=== PATIENT | female | born 1995 | race Two or more races ===

== ENCOUNTER 2020-07-13 05:09 | Inpatient (IN) | payer OTHER ==
[2020-07-13] VITALS (14 sets, daily range): BP systolic 75–113; BP diastolic 39–82
[~2020-07-13] VITALS: Ht 167.6 cm; Wt 68.9 kg
[~2020-07-13 05:09] MED LIST: IBUPROFEN600 M1 ORAL; TYLENOL EXTRA500 MG ORAL
[2020-07-13] MEDS ORDERED: AMOXICILLIN500 MG ORAL (05:58)
[2020-07-13] MEDS ORDERED: fentaNYL 100 mcg/2 mL IV ONE (06:18)
[2020-07-13] MEDS ORDERED: Lidocaine 1% MPF 10mg/ml 5ml ONE (06:18)
[2020-07-13] MEDS ORDERED: Midazolam 2mg/2ml Inj ONE (06:18)
[2020-07-13] MEDS ORDERED: TransDerm Scop 1.5mg/72HR Patch TDERMAL ONE ×2 (06:33→08:15)
[2020-07-13] MEDS ORDERED: Succinylcholine 20mg/ml 10ml vial ONE (06:34)
[2020-07-13] MEDS ORDERED: Rocuronium Bromide 50mg/5ml Inj IV ONE (06:34)
[2020-07-13] MEDS ORDERED: Gelfoam Size TOPIC ONE (06:44)
[2020-07-13] MEDS ORDERED: Ropivacaine 5mg/ml Vial 30ml INJ ONE (06:44)
[2020-07-13] MEDS ORDERED: Thrombin 5000 units TOPIC ONE (06:44)
[2020-07-13] MEDS ORDERED: Bacitracin 50000 Units Vial ONE (06:45)
[2020-07-13] MEDS ORDERED: ceFAZolin sod 2 GM in NS 55 ML IVPB ONE (07:00)
[2020-07-13] MEDS ORDERED: propofoL 1,000mg/100ml IV ONE (07:00)
[2020-07-13] MEDS ORDERED: Sterile Water Irrig 1000ml IRRIG ONE (07:00)
[2020-07-13] MEDS ORDERED: LR 1000ml ONE (07:00)
[2020-07-13] MEDS ORDERED: NS Irrig 1000ml ONE (07:00)
--- NOTE | 2020-07-13 07:28 | Brief Operative Note ---
Immediate Post Operative Note Operative Note Chief Complaint: back pain and radiculpathy Pre-op Diagnosis: L5S1 herniation Procedure: Left L5S1 Hemilaminotomy foraminotomy microdiscectomy Post-op Diagnosis: same as pre-op Findings: consistent w/pre-op dx studies Surgeon: Shekhar Director Of Corporate Sponsorships: Natalia Anesthesiologist: DONATO Anesthesia: general Specimen: none Complications: none Condition: stable Fluids: IVF Estimated Blood Loss: minimal Drains: none Implant(s) used?: No Sameer Corrigan MD Jul 13, 2020 07:28
--- NOTE | 2020-07-13 07:28 | Pre-Procedure Note/Attestation ---
Pre-Procedure Note/Attestation Complete Prior to Procedure Planned Procedure: not applicable Procedure Narrative: Left L5S1 Hemilaminotomy foraminotomy microdiscectomy Indications for Procedure Pre-Operative Diagnosis: L5S1 herniation Attestation I attest that I discussed the nature of the procedure; its benefits; risks and complications; and alternatives (and the risks and benefits of such alternatives), prior to the procedure, with the patient (or the patient's legal hobbies and crafts sales representative). I attest that, if there was a reasonable possibility of needing a blood transfusion, the patient (or the patient's legal hobbies and crafts sales representative) was given the [facility] standardized written summary, pursuant to the Karson Soo Blood Safety Act ([place] Health and Safety Code # 1645, as amended). I attest that I re-evaluated the patient just prior to the surgery and that there has been no change in the patient's H&P, except as documented below: Sameer Corrigan MD Jul 13, 2020 07:28
--- NOTE | 2020-07-13 08:03 | Anethesia Preoperative Eval ---
Anesthesia Pre-op PMH/ROS General Date of Evaluation: Jul 13, 2020 Time of Evaluation: 06:57 Anesthesiologist: Stephanie ASA Score: ASA 2 Mallampati Score Class I : Soft palate, uvula, fauces, pillars visible Class II: Soft palate, uvula, fauces visible Class III: Soft palate, base of uvula visible Class IV: Only hard plate visible Mallampati Classification: Class II Surgeon: Shekhar Diagnosis: Lumbar radiculopathy Surgical Procedure: Laminotomy Anesthesia History: none Family History: no anesthesia problems Allergies: Coded Allergies: No Known Allergies (Unverified , 07/13/20) Medications: see eMAR Patient NPO?: Yes Past Medical History Cardiovascular: Denies: HTN, CAD, ME, valve dz, arrhythmia, other Pulmonary: Denies: asthma, COPD, BLESSING, other Gastrointestinal/Genitourinary: Reports: GERD - mild; Denies: CRI, ESRD, other Neurologic/Psychiatric: Reports: other - chronic pain; Denies: dementia, CVA, depression/anxiety, TIA Endocrine: Denies: DM, hypothyroidism, steroids, other HEENT: Denies: cataract (L), cataract (R), glaucoma, [place] (L), [place] (R), other Hematology/Immune: Denies: anemia, DVT, bleeding disorder, other Musculoskeletal/Integumentary: Denies: OA, RA, DJD, DDD, edema, other PMH Narrative: as above PSxH Narrative: none Anesthesia Pre-op Phys. Exam Physician Exam Last Vital Signs Date Time Temp Pulse Resp B/P (MAP) Pulse Ox O2 Delivery O2 Flow Rate FiO2 07/13/20 05:55 Room Air 07/13/20 05:54 98.7 86 20 113/75 (88) 100 Constitutional: NAD Neurologic: CN 2-12 intact Cardiovascular: RRR, no M/R/G Respiratory: CTA Gastrointestinal: S/NT/ND Airway Exam Mallampati Score: Class II MO: full Neck: flexible ROM: full Teeth: intact Dentures: no upper, no lower Anesthesia Pre-op A/P Labs see chart Urine Test Test 07/13/20 05:30 Urine HCG, Qualitative Negative (NEGATIVE) Studies Pre-op Studies: EKG - NSR Risk Assessment & Plan Assessment: ASA 2 Plan: GA with ETT, prone position neuromonitoring, PONV prevention Status Change Before Surgery: No Pre-Antibiotics Drug: Ancef 1g Given Within 1 Hr of Incision: Yes Time Given: 07:16 Rajan Brown MD Jul 13, 2020 08:03
[2020-07-13] MEDS ORDERED: Morphine Sulfate 10mg/ml Inj ONE (08:08)
[2020-07-13] MEDS ORDERED: Ketorolac 30mg Inj ONE (08:10)
[2020-07-13] MEDS ORDERED: Glycopyrrolate 0.2mg/ml 1ml Vial ONE (08:10)
[2020-07-13] MEDS ORDERED: Neostigmine 1mg/ml 10ml Inj ONE (08:10)
[2020-07-13] MEDS ORDERED: Sodium Chloride 10ml vial INJ ONE (08:10)
[2020-07-13] MEDS ORDERED: Acetaminophen (Non formulary) 100 ML IV ONE (08:15)
[2020-07-13] MEDS ORDERED: LR 1000ml 1,000 ML IVLG SCH (08:15)
[2020-07-13] MEDS ORDERED: DiphenhydrAMINE 50mg/ml Inj IVP PRN (08:15)
[2020-07-13] MEDS ORDERED: Metoclopramide 10mg/2ml Inj IVP PRN ×2 (08:15→11:30)
[2020-07-13] MEDS ORDERED: Midazolam 2mg/2ml Inj IVP PRN (08:15)
[2020-07-13] MEDS ORDERED: Meperidine 25mg/1ml Inj (FOR RIGORS ONLY) IV PRN (08:15)
[2020-07-13] MEDS ORDERED: Ketorolac 30mg Inj IV PRN (08:15)
--- NOTE | 2020-07-13 09:17 | Immediate Post-Op Evaluation ---
Immediate Post-Op Evalulation Immediate Post-Op Evalulation Procedure: L5-S1 laminotomy with discectomy and decompression Date of Evaluation: Jul 13, 2020 Time of Evaluation: 09:16 IV Fluids: 800 Blood Products: none Estimated Blood Loss: 20 Urinary Output: none Blood Pressure Systolic: 95 Blood Pressure Diastolic: 56 Pulse Rate: 72 Respiratory Rate: 20 O2 Sat by Pulse Oximetry: 99 Temperature (Fahrenheit): 97.5 Pain Score (1-10): 1 Nausea: No Vomiting: No Complications none Patient Status: reacts, patent, extubated, none Hydration Status: adequate Rajan Brown MD Jul 13, 2020 09:17
--- NOTE | 2020-07-13 10:29 | Operative Note - Dictated ---
DATE OF OPERATION: 07/13/2020 SURGEON: Sameer Corrigan MD, Orthopaedic Spine Surgeon. SPEEDBOAT DRIVER SURGEON: ADA Elizalde ANESTHESIOLOGIST: Rajan Brown MD. ANESTHESIA: General endotracheal anesthesia. PREOPERATIVE DIAGNOSES: 1. Intractable back pain. 2. Intractable leg pain. 3. Worsening radiculopathy. 4. Weakness. 5. Herniated nucleus pulposus, L5-S1 herniation. 6. Neural foraminal stenosis, L5-S1. POSTOPERATIVE DIAGNOSES: 1. Intractable back pain. 2. Intractable leg pain. 3. Worsening radiculopathy. 4. Weakness. 5. Herniated nucleus pulposus, L5-S1 herniation. 6. Neural foraminal stenosis, L5-S1. PROCEDURES PERFORMED: 1. Left-sided L5-S1 microdiscectomy. 2. L5-S1 hemilaminotomy, foraminotomy and medial facetectomy. 3. L5-S1 neural foraminotomy through a transpedicular intraforaminal approach. 4. Use of intraoperative microscope. 5. Supervision and interpretation of intraoperative fluoroscopy. 6. Supervision and interpretation of somatosensory-evoked potential and free running EMG monitoring. ESTIMATED BLOOD LOSS: Less than 100 mL. COMPLICATIONS: None. INDICATIONS FOR THE PROCEDURE: The patient presents for intractable back pain and radiculopathy. The patient tried and failed a prolonged course of conservative management, including but not limited to chiropractic therapy, physical therapy, nonsteroidal anti-inflammatory drugs, medication, ice packs as well as epidural injection. Despite these therapies, the patient still developed recalcitrant pain and elected for definitive management in the form of left-sided L5-S1 microdiscectomy, L5-S1 hemilaminotomy, foraminotomy and medial facetectomy, and L5-S1 neural foraminotomy through a transpedicular intraforaminal approach. CONSENT: We had a long discussion with the patient regarding definitive surgical treatment options. The patient's MRI demonstrated herniated nucleus pulposus, L5-S1 herniation, neural foraminal stenosis, L5-S1, and as a result, I felt the patient would benefit from the discectomy as well as neural foraminotomy at this level. We had a long discussion with the patient regarding the risks, alternatives, and benefits of surgery. Our description of the risks included a discussion in person as well as a signed consent which detailed all pertinent risks and the procedure itself. Briefly, our discussion included but was not limited to infection, bleeding, pseudarthrosis, spinal cord injury, neurovascular injury, dural tear, CSF leak, neuropathy, paralysis, permanent weakness/drop foot, paresthesias blindness, palsy and weakness. The patient understood there may be a need for revision surgery or additional procedures. Approach related complications including dysphonia, dysphagia, blindness, permanent vocal cord and neural injury, hematoma, swallowing and breathing difficulty. Medical complications including liver, kidney, shock, and cardiopulmonary failure. Anesthesia complications including , swelling. Damage to the musculature, larynx (voice injury or loss),esophagus (throat), trachea, blood vessels and muscles (muscular sprain) and lungs (pneumothorax) during this surgical procedure. Injury to deeper structures may be temporary or permanent. The patient understood these and elected to proceed. A written and verbal consent was given. We discussed the pros and cons of all the alternatives. We discussed the uncertainties associated with the decision. Afterwards I assessed the patients understanding and explored their preferences. All questions were answered and no guarantees were given. Medical clearance was obtained prior to surgery INTRAOPERATIVE FINDINGS: At L5-S1, extended hemilaminotomy, laminotomy was performed. There was demonstrated to be encroachments and compression on the traversing and exiting neural elements. This was evaluated and probed with a New Harmony 4 nerve root retractor, which gave rise to a large paracentral left-sided tear in the posterior longitudinal ligament through which a large fragment of nuclear pulposus tissue had extruded. This was freed with a New Harmony 4 peripherally along the fresh and torn edges of the PLL, which led me to believe this tear was more traumatic in nature and not degenerative, which tends to have a more calcified chronic appearance with the degenerated tear. Due to the fresh nature of the tear and disc herniation, it was more pliable and easily removed with a combination of arthroscopic pituitaries 1.5 and 2 mm pituitaries. Afterwards, the disc space was thoroughly irrigated for residual fragments. The disc itself now was soft and spongy and was not calcified, dehydrated or desiccated. DESCRIPTION OF PROCEDURE: Under the benefit of general endotracheal anesthesia and with the assistance of the entire operative team, the patient was moved from the rutica onto the operative table in the prone position on a Edenilson frame. The head was secured and positioned appropriately. Bilateral arms were secured with Gel Pads and foam and all bony prominences were padded. The bilateral lower extremity SCD and LOGAN hose were placed for DVT prophylaxis. A surgical timeout was called which corroborated our planned procedure. Preoperative antibiotics were administered within 30 minutes of the incision for prophylaxis. Decadron was given for preoperative steroids. Using lateral radiography, the operative levels were delineated. An incision was marked based on our interpretation of lateral radiography and afterwards the body was prepped and draped in the usual sterile manner. The family was notified that we were ready to commence surgery and were called in the waiting room hourly for updates An incision was based on our lateral fluoroscopic image to center the incision at the L5-S1 interspace. The wound was prepped and draped in the usual sterile fashion. Using a scalpel a midline incision was taken down through the skin and subcutaneous tissues until the overlying hemilamina of L5-S1 were visualized. Next, using meticulous hemostasis, hemilaminotomies were dissected and retractors were placed. Using a OneSun dental, we confirmed placement at the L5-S1 interspace. We next turned our attention to our decompression. A standard hemilaminotomy foraminotomy medial facetectomy was performed at each level in standard fashion using a Midas-Perry type AM8 drill bit, straight and angled curettage, and Kerrison 4 rongeurs until the lateral thecal sac margin and traversing nerve root was visualized. All remainders of the ligamentum flavum and lateral bony margins were resected in total with angled curettage and Kerrison 4 rongeurs until the lateral thecal sac margin and traversing nerve root was visualized and decompressed. We next turned our attention toward our L5-S1 microdiscectomy on the left side. A New Harmony 4 was used to gently mobilize the thecal sac medially and this was held retracted with a bayonetted nerve root retractor. It was at this point that we noted a large broad-based disc protrusion with encroachment dorsally on the thecal sac neural foraminal contents. A bayonet and nerve root retractor was then placed carefully to retract the thecal sac and a discectomy was performed using a combination of a long handled 15 blade scalpel, downgoing and straight pituitaries and downgoing curettage. Afterward the disc space was irrigated twice with 20 mL of antibiotic-impregnated saline. All loose and free-floating disc fragments were carefully resected with a narrow pituitary. Having been satisfied with our decompression after our discectomy of all neural elements, we next turned our attention to our neural foraminoplasty/foraminotomy. This was performed through a transpedicular intraforaminal approach using an access probe followed by a neuro check device, which confirmed ventral placement of our nerve root. Once we confirmed we were safe, we next turned our attention towards placement of our size 10 file under direct microscopic visualization and under lateral fluoroscopy. Using pre and post reciprocation imaging, we were able to visualize our direct decompression given the reciprocation allowed for re-creation of the neural foraminal arch at L5-S1. Afterwards, hemostasis was obtained with 60 mL of antibiotic-impregnated saline followed by FloSeal and Gelfoam. After sponge and needle count were found to be correct, we next turned our attention to closure. Closure consisted of 1-0 Vicryl in standard interrupted fashion. Zosyn was placed deep to the fascia and superficial to the fascia for antibiotic prophylaxis. Skin closure was performed with 2-0 Vicryl in interrupted fashion followed by a running Monocryl for the skin. Final dressings consisted of Dermabond for the superficial skin, Telfa and Tegaderm. The patient tolerated the procedure well. The patient was extubated after the conclusion of surgery without incident. We discussed the findings of the surgery with the family upon completion of the case. At this point, the patient will be transferred to the spine floor for further observation. Sameer Corrigan M.D. DR: LUANNE JOB#: [id number] CC:
--- NOTE | 2020-07-13 11:00 | NUR ---
NURSE NOTES: RN received report from Ronaldo and patient in bed [id number]. Patient's vitals stable. No s/s of respiratory distress on 3 L of NC, does not c/o pain. Ice pack placed on the back with logrolling. Patient is drowsy and sleeping. Bed in lowest position and locked, bed alarm on. Side rails up X2. Call light within reach. IV running, asymptomatic, dry, clean. Per Ronaldo, patient's belonging will be delivered from the outpatient. RN contacted the outpatient to bring her belongings to the floor. Will continue to monitor.
[2020-07-13] MEDS ORDERED: HYDROmorphone 1mg/ml Carpuject IVP PRN (11:30)
[2020-07-13] MEDS ORDERED: HYDROcodone/Acetamin 7.5/325 tab ORAL PRN (11:30)
[2020-07-13] MEDS ORDERED: Morphine Sulfate 2mg/ml Inj(IV/IM USE ONLY) IV PRN (11:30)
[2020-07-13] MEDS ORDERED: Morphine Sulfate 4mg/ml Inj (IV USE ONLY) IV PRN (11:30)
[2020-07-13] MEDS ORDERED: Naloxone 0.4mg/ml Inj IVP PRN (11:30)
--- NOTE | 2020-07-13 11:56 | NUR ---
NURSE NOTES: Oleg from outpatient surgery brought the belongings. RN verified the belongings with Oleg and the patient.
[2020-07-13] MEDS ORDERED: Chloraseptic Spray 20mL Bottle ORAL PRN (12:30)
[2020-07-13] MEDS: NS w/KCl 20mEq 1000ml 1,000 ML IV SCH ×2 (13:13→23:08)
--- NOTE | 2020-07-13 13:13 | 48 Hour Post Anesthesia Eval ---
Post Anesthesia Evaluation Procedure: L5-S1 laminotomy with discectomy and decompression Date of Evaluation: Jul 13, 2020 Time of Evaluation: 13:11 Blood Pressure Systolic: 98 0: 56 Pulse Rate: 72 Respiratory Rate: 18 Temperature (Fahrenheit): 97 O2 Sat by Pulse Oximetry: 98 Airway: patent Nausea: No Vomiting: No Pain Intensity: 3 Hydration Status: adequate Cardiopulmonary Status: stable Mental Status/LOC: patient returned to baseline Follow-up Care/Observations: n/a Post-Anesthesia Complications: none Follow-up care needed: ready to discharge Rajan Brown MD Jul 13, 2020 13:13
[2020-07-13] MEDS: HYDROcodone/Acetamin 7.5/325 tab ORAL PRN (13:15)
--- NOTE | 2020-07-13 13:47 | Diagnostic Imaging Report ---
INDICATION: Pain, intraoperative TECHNIQUE: Intraoperative imaging Fluoroscopy time: 3 seconds Total dose: 0.63492 mGym2 Total number of images: One COMPARISON: None FINDINGS: Intraoperative image demonstrates a surgical tool projected posterior to what is presumably the L5-S1 disc. IMPRESSION: Intraoperative imaging, as described
--- NOTE | 2020-07-13 13:48 | NUR ---
PT EVALUATION NOTE Patient seen for initial evaluation and treatment initiated. Patient presents with lumbar pain and impaired functional mobility s/p lumbar spine surgery. Patient instructed in back precautions and in proper log roll technique for in/OOB. Patient required min/mod assist for bed mobility and min assist for sit <-> stand transfers. Patient unsteady in standing, movements slow and guarded. Patient able to take several small side steps and several small steps forward and back with bilateral hand hold assist. Patient unable to fully extend B knees in standing and while taking steps, Patient will benefit from skilled inpatient PT intervention to increase strength and postural stability for improved level of functional mobility, safety and activity tolerance. Anticipate discharge home once medically cleared by MD. Addendum: 07/13/20 at 1350 by GUSTAVO ROBB PT Amended: Links added.
--- NOTE | 2020-07-13 14:42 | NUR ---
CASE MANAGEMENT:REVIEW 25 YR OLD FEMALE HERE FOR ELECTIVE SURGERY SI: BACK PAIN AND RADICULOPATHY 98.7 86 20 113/75 100% ON RA IS: TO SURGERY FOR L5S1 HEMILAMINOTOMY FORAMINOTOMY MICRODISCECTOMY : TO MED/SURG POST OP
[2020-07-13] MEDS: ceFAZolin sod 1 GM in D5W 55 ML IV SCH ×2 (14:45→23:08)
--- NOTE | 2020-07-13 15:36 | NUR ---
NURSE NOTES: Patient on purewick as the patient not able to ambulate or use a fracture lantigua from the back surgery.
[2020-07-13] MEDS: Docusate 100mg cap ORAL SCH (18:01)
[2020-07-13] MEDS: HYDROcodone/Acetamin 5/325 tab ORAL PRN ×2 (18:56→19:02)
--- NOTE | 2020-07-13 19:45 | NUR ---
NURSE NOTES: Received report from Aidan. AAO x 4, on NC 3l. IV site intact and patent. Purewick cath in place. Surgical dressing on back d/c/i. No acute distress noted at this time. Bed locked, lowest position, alarm on, side rails up, call light within reach. Will continue to monitor.
--- NOTE | 2020-07-13 20:02 | NUR ---
NURSE HAND-OFF: Important Events on Shift:pain management, post op interventions Patient Status: stable Diet: regular, pureed moist Pending Orders: n/a Pending Results/Labs:n/a Pending MD notification:n/a Latest Vital Signs: Temperature 97.7 , Pulse 67 , B/P 93 /58 , Respiratory Rate 20 , O2 SAT 100 , Nasal Cannula, O2 Flow Rate 3 . Vital Sign Comment: stable Latest Lundberg Fall Score: 10 Fall Risk: Low Risk Safety Measures: Call light Within Reach, Bed Alarm Zone 1, Side Rails Side Rails x2, Bed position Low and Locked. Fall Precautions: Yellow Socks Yellow Gown Door Sign Patient Fall Education Report given to Andree.
[2020-07-13] MEDS: Morphine Sulfate 4mg/ml Inj (IV USE ONLY) IV PRN (23:09)
[2020-07-14] VITALS: BP 101/59
[2020-07-14 04:00] VITALS: BP 99/57
[2020-07-14] MEDS: Morphine Sulfate 4mg/ml Inj (IV USE ONLY) IV PRN (04:40)
--- NOTE | 2020-07-14 06:25 | NUR ---
NURSE HAND-OFF: Important Events on Shift:pain Patient Status: Diet: Pending Orders: [] Pending Results/Labs:[] Pending MD notification:[] Latest Vital Signs: Temperature 98.8 , Pulse 89 , B/P 99 /57 , Respiratory Rate 18 , O2 SAT 99 , Nasal Cannula, O2 Flow Rate 3.0 . Vital Sign Comment: [] Latest Lundberg Fall Score: 10 Fall Risk: Low Risk Safety Measures: Call light Within Reach, Bed Alarm Zone 1, Side Rails Side Rails x2, Bed position Low and Locked. Fall Precautions: Yellow Socks Yellow Gown Door Sign Patient Fall Education Addendum: 07/14/20 at 0709 by MARYBETH HISRCH RN RN Report given to Aidan
[2020-07-14] MEDS: ceFAZolin sod 1 GM in D5W 55 ML IV SCH (07:50)
[2020-07-14] MEDS: NS w/KCl 20mEq 1000ml 1,000 ML IV SCH ×2 (07:50→17:53)
[2020-07-14 08:00] VITALS: BP 99/54
--- NOTE | 2020-07-14 08:58 | NUR ---
CASE MANAGEMENT:REVIEW 07/14/20 SI: POD #1 S/P L5S1 HEMILAMINOTOMY FORAMINOTOMY MICRODISCECTOMY 98.7 53 16 99/54 99% ON 3L/NC NO LABS IS: IV ANCEF Q8HR (LAST DOSE GIVEN THIS [facility]) IV DECADRON Q6HRS (LAST DOSE GIVEN THIS AM) IVF@100/HR COLACE PO BID IV MORPHINE Q4HRS PRN : MED/SURG STATUS DCP: FROM HOME PLAN: REGULAR DIET PHYSICAL THERAPY
[2020-07-14] MEDS: Docusate 100mg cap ORAL SCH ×2 (09:21→17:54)
[2020-07-14] MEDS ORDERED: IBUPROFEN400 MG ORAL (09:30)
--- NOTE | 2020-07-14 10:21 | General Progress Note ---
Subjective Allergies: Coded Allergies: No Known Allergies (Unverified , 07/13/20) Subjective borderline hypotension Objective Last 24 Hour Vital Signs Date Time Temp Pulse Resp B/P (MAP) Pulse Ox O2 Delivery O2 Flow Rate FiO2 07/14/20 08:00 98.7 53 16 99/54 (69) 99 07/14/20 04:00 98.8 89 18 99/57 (71) 99 07/14/20 00:00 98.2 71 18 101/59 (73) 98 07/13/20 21:00 Nasal Cannula 3.0 07/13/20 20:00 98.2 67 17 104/57 (73) 100 07/13/20 19:32 97.7 07/13/20 16:00 97.7 67 20 93/58 (70) 100 07/13/20 13:45 97.2 07/13/20 13:13 72 18 98 07/13/20 12:30 Nasal Cannula 07/13/20 10:25 97.9 55 19 92/57 100 Nasal Cannula 3 Intake and Output 07/13/20 07/14/20 19:00 07:00 Intake Total 2055 ml 100 ml Output Total 20 ml 1000 ml Balance 2035 ml -900 ml Intake IV Total 2055 ml 100 ml Output Urine Total 1000 ml Estimated Blood Loss 20 ml # Voids 2 Height (Feet): 5 Height (Inches): 6.00 Weight (Pounds): 152 Objective WDWN NAD clear breath sounds bilaterally without rhonchi or wheeze [id number] without MRG NABS nontender no HSM no CCE nonfocal Assessment/Plan Assessment/Plan: L5S1 herniation Left L5S1 Hemilaminotomy foraminotomy microdiscectomy postop borderline hypotension PLAN 1. incentive spirometry 2. bolus fluids 3. PT evaluation and therapy 4. Hydration 5. Pain management 6. discharge once stable with outpatient follow up Teofilo Garcia MD Jul 14, 2020 10:21
--- NOTE | 2020-07-14 10:30 | NUR ---
NURSE NOTES: RN notified of patient's low vitals that are off her baseline to Dr. Garcia. Dr. Garcia ordere 1L of NS bolus once. RN verified and carried out the order.
[2020-07-14 12:00] VITALS: BP 107/64
[2020-07-14 16:00] VITALS: BP 98/64
--- NOTE | 2020-07-14 17:30 | NUR ---
NURSE NOTES: RN notified Dr. Corrigan that patient is not able to walk by herself and has unsteady gait from the back surgery. Patient does not feel she is ready for discharge.
[2020-07-14 20:00] VITALS: BP 96/60
--- NOTE | 2020-07-14 20:00 | NUR ---
NURSE HAND-OFF: Important Events on Shift:pain management, assistance with ambulation Patient Status: anxious Diet: regular, pureed moist Pending Orders: n/a Pending Results/Labs:n/a Pending MD notification:n/a Latest Vital Signs: Temperature 99.3 , Pulse 75 , B/P 98 /64 , Respiratory Rate 16 , O2 SAT 98 , Nasal Cannula, O2 Flow Rate 3.0 . Vital Sign Comment: slightly high body temperature Latest Lundberg Fall Score: 10 Fall Risk: Low Risk Safety Measures: Call light Within Reach, Bed Alarm Zone 1, Side Rails Side Rails x2, Bed position Low and Locked. Fall Precautions: Yellow Socks Yellow Gown Door Sign Patient Fall Education Report given to Ninfa.
--- NOTE | 2020-07-14 20:01 | NUR ---
NURSE NOTES: Received patient in no apparent distress. A&OX4. IV site patent and intact. Surgical dressing noted on the lower back, dry and intact. Bed in lowest position. Call light within reach. Will continue to monitor.
[2020-07-15] VITALS: BP 92/50
[2020-07-15 04:00] VITALS: BP 93/54
[2020-07-15] MEDS: NS w/KCl 20mEq 1000ml 1,000 ML IV SCH ×2 (04:11→13:41)
[2020-07-15] MEDS: Morphine Sulfate 4mg/ml Inj (IV USE ONLY) IV PRN ×2 (07:12→11:48)
--- NOTE | 2020-07-15 07:20 | NUR ---
NURSE NOTES: Received patient in bed, patient awake, alert, oriented x4, no sign of distress, on going IVF patent and infusing well, c/o pain , NOC shift RN medicated patient Surgical dressing on back clean dry and intact, on fall precaution, purewick in place Bed locked, lowest position, alarm on, side rails up, call light within reach. Will continue to monitor. rodney nuno
--- NOTE | 2020-07-15 07:34 | NUR ---
NURSE HAND-OFF: Important Events on Shift: Patient Status: Diet: Regular Pending Orders: Pending Results/Labs: Pending MD notification: Latest Vital Signs: Temperature 98.3 , Pulse 66 , B/P 93 /54 , Respiratory Rate 17 , O2 SAT 98 , Nasal Cannula, O2 Flow Rate 2.0 . Vital Sign Comment: Latest Lundberg Fall Score: 30 Fall Risk: Medium Risk Safety Measures: Call light Within Reach, Bed Alarm Zone 1, Side Rails Side Rails x2, Bed position Low and Locked. Fall Precautions: Yellow Socks Yellow Gown Door Sign Patient Fall Education Report given to Bertha HERNADEZ.
--- NOTE | 2020-07-15 07:49 | General Progress Note ---
Subjective Allergies: Coded Allergies: No Known Allergies (Unverified , 07/13/20) Subjective vitals better pain improved Objective Last 24 Hour Vital Signs Date Time Temp Pulse Resp B/P (MAP) Pulse Ox O2 Delivery O2 Flow Rate FiO2 07/15/20 04:00 98.3 66 17 93/54 (67) 98 07/15/20 00:00 98.2 58 16 92/50 (64) 98 07/14/20 21:00 Nasal Cannula 2.0 07/14/20 20:00 99.6 62 17 96/60 (72) 99 07/14/20 18:23 99.3 07/14/20 16:00 99.3 75 16 98/64 (75) 98 07/14/20 12:00 99.1 64 16 107/64 (78) 99 07/14/20 09:00 Nasal Cannula 3.0 07/14/20 08:00 98.7 53 16 99/54 (69) 99 Intake and Output 07/14/20 07/15/20 19:00 07:00 Intake Total 755 ml 1100 ml Balance 755 ml 1100 ml Intake Oral 600 ml IV Total 155 ml 1100 ml # Voids 3 2 Height (Feet): 5 Height (Inches): 6.00 Weight (Pounds): 152 Objective WDWN NAD clear breath sounds bilaterally without rhonchi or wheeze [id number] without MRG NABS nontender no HSM no CCE nonfocal Assessment/Plan Assessment/Plan: L5S1 herniation Left L5S1 Hemilaminotomy foraminotomy microdiscectomy postop borderline hypotension PLAN 1. incentive spirometry 2. bolus fluids 3. PT evaluation and therapy 4. Hydration 5. Pain management 6. discharge ok per medicine impression, plan, and exam edited and reviewed in detail care discussed with Teofilo Haro MD Jul 15, 2020 07:49
[2020-07-15 08:00] VITALS: BP 96/59
[2020-07-15] MEDS: Docusate 100mg cap ORAL SCH ×2 (08:16→17:02)
[2020-07-15 12:00] VITALS: BP 105/59
--- NOTE | 2020-07-15 14:05 | NUR ---
CASE MANAGEMENT:REVIEW 07/15/20 SI: POD #2 S/P L5S1 HEMILAMINOTOMY FORAMINOTOMY MICRODISCECTOMY 97.9 71 18 96/59 98% ON RA IS: IVF+KCL @100/HR IV MORPHINE Q4HRS PRN NORCO PO Q3HRS PRN : MED/SURG STATUS DCP: FROM HOME PLAN: RAISED TOILET SEAT FOR HOME USE
--- NOTE | 2020-07-15 15:03 | NUR ---
NURSE NOTES: Spoke to regarding patient and new pain medication order received. Order read back and carried out.
[2020-07-15] MEDS ORDERED: HYDROcodone/Acetamin 10/325 tab ORAL PRN (15:15)
[2020-07-15 16:00] VITALS: BP 110/67
[2020-07-15] MEDS: HYDROcodone/Acetamin 7.5/325 tab ORAL PRN ×2 (17:02→21:04)
--- NOTE | 2020-07-15 19:13 | NUR ---
NURSE HAND-OFF: Important Events on Shift:[ambulate with PT,able to get out of bed with minimal assist,tolerate well, not passing gas,no BM YET] Patient Status: [ON GOING] Diet: [REGULAR PUREED DIET] Pending Orders: [NONE] Pending Results/Labs:[NONE] Pending MD notification:NONE] Latest Vital Signs: Temperature 98.3 , Pulse 79 , B/P 110 /67 , Respiratory Rate 18 , O2 SAT 99 , Nasal Cannula, O2 Flow Rate 2.0 . Vital Sign Comment: [STABLE] Latest Lundberg Fall Score: 30 Fall Risk: Medium Risk Safety Measures: Call light Within Reach, Bed Alarm Zone 1, Side Rails Side Rails x2, Bed position Low and Locked. Fall Precautions: Yellow Socks Yellow Gown Door Sign Patient Fall Education Report given to [MARICARMEN CARMEN].
--- NOTE | 2020-07-15 19:30 | NUR ---
NURSE NOTES: Patient awake in bed, alert and oriented x54, in severe pain when moving. Will medicate as ordered. Dressing dry and intact. Assisted to bedside commode. Instructed to use call light for assistance. Call light in reach. Bed in lowest and lock engaged. Will continue plan of care.
[2020-07-15 20:00] VITALS: BP 107/77
[2020-07-16] VITALS: BP 104/69
[2020-07-16] MEDS: HYDROcodone/Acetamin 7.5/325 tab ORAL PRN ×3 (01:38→10:57)
[2020-07-16] MEDS: Milk of Magnesia 30ml Ud ORAL PRN ×2 (01:40→10:57)
[2020-07-16 04:00] VITALS: BP 108/69
[2020-07-16] MEDS: NS w/KCl 20mEq 1000ml 1,000 ML IV SCH ×2 (04:15→10:30)
--- NOTE | 2020-07-16 07:30 | NUR ---
NURSE NOTES: Report received from Bhakti HERNADEZ, rounds made. Patient resting in semi-fowlers position in bed, AOx4, calm. Respirations even/unlabored on RA. Lower back pain 11/04, will medicate as ordered. IV NS +20KCL at 100 ml/hr to , site asymptomatic. Surgical dressing CDI. Neuros intact, skin warm, wiggles, pulses palpable, no NT. Plans for discharge today. Call light in reach, bed in lowest position, will continue to monitor.
--- NOTE | 2020-07-16 07:40 | NUR ---
NURSE HAND-OFF: Important Events on Shift: pain mgt Patient Status: Diet: Pending Orders: Pending Results/Labs: Pending MD notification: Latest Vital Signs: Temperature 98.9 , Pulse 60 , B/P 108 /69 , Respiratory Rate 18 , O2 SAT 99 , Nasal Cannula, O2 Flow Rate 2.0 . Vital Sign Comment: Latest Lundberg Fall Score: 30 Fall Risk: Medium Risk Safety Measures: Call light Within Reach, Bed Alarm Zone 1, Side Rails Side Rails x2, Bed position Low and Locked. Fall Precautions: Yellow Socks Yellow Gown Door Sign Patient Fall Education Report given to MARICARMEN Raman.
[2020-07-16 08:00] VITALS: BP 103/60
--- NOTE | 2020-07-16 09:20 | NUR ---
CASE MANAGEMENT:REVIEW 07/16/20 SI: POD #3 S/P L5S1 HEMILAMINOTOMY FORAMINOTOMY MICRODISCECTOMY 98.9 60 18 108/69 99% ON RA IS: IVF+KCL @100/HR COLACE PO BID IV MORPHINE Q4HRS PRN NORCO PO Q3HRS PRN : MED/SURG STATUS DCP: FROM HOME PLAN: RAISED TOILET SEAT FOR HOME USE
--- NOTE | 2020-07-16 10:45 | NUR ---
NURSE NOTES: Received call from Dr. Garcia, orders for discharge, okay if patient doesn't have BM prior to discharge.
--- NOTE | 2020-07-16 10:45 | General Progress Note ---
Subjective Allergies: Coded Allergies: No Known Allergies (Unverified , 07/13/20) Subjective vitals better pain improved Objective Last 24 Hour Vital Signs Date Time Temp Pulse Resp B/P (MAP) Pulse Ox O2 Delivery O2 Flow Rate FiO2 07/16/20 04:00 98.9 60 18 108/69 (82) 99 07/16/20 00:00 98.6 63 20 104/69 (81) 100 07/15/20 21:00 Room Air 07/15/20 20:00 99.2 68 18 107/77 (87) 99 07/15/20 16:00 98.3 79 18 110/67 (81) 99 07/15/20 12:00 98.4 60 18 105/59 (74) 100 Intake and Output 07/15/20 07/16/20 19:00 07:00 Intake Total 1300 ml 700 ml Output Total 1800 ml Balance 1300 ml -1100 ml IV Total 1100 ml 700 ml Other 200 ml Output Urine Total 1800 ml # Voids 2 Height (Feet): 5 Height (Inches): 6.00 Weight (Pounds): 152 Objective WDWN NAD clear breath sounds bilaterally without rhonchi or wheeze [id number] without MRG NABS nontender no HSM no CCE nonfocal Assessment/Plan Assessment/Plan: L5S1 herniation Left L5S1 Hemilaminotomy foraminotomy microdiscectomy postop borderline hypotension PLAN 1. incentive spirometry 2. bolus fluids 3. PT evaluation and therapy 4. Hydration 5. Pain management 6. discharge home if ok with surgery impression, plan, and exam edited and reviewed in detail care discussed with Teofilo Haro MD Jul 16, 2020 10:45
[2020-07-16] MEDS: Docusate 100mg cap ORAL SCH (10:53)
--- NOTE | 2020-07-16 11:00 | NUR ---
NURSE NOTES: Called pharmacy, unable to waste Colace on Pyxis due to patient dropped it, instructed to take next dose (1800) from Pyxis.
--- NOTE | 2020-07-16 11:30 | NUR ---
NURSE NOTES: Dr. Garcia notified patient requesting regular diet, not regular pureed, order received for regular diet, will update.
[2020-07-16 12:00] VITALS: BP 109/70
[2020-07-16 12:35] VITALS: BP 127/86
[2020-07-16 13:41] LABS: BASOPHILS % (AUTO) 1.1 % (0.0-2.0); EOSINOPHILS % (AUTO) 0.7 % (0.0-3.0); HEMATOCRIT 44.2 % (37.0-47.0); HEMOGLOBIN 13.5 G/DL (12.0-16.0); LYMPHOCYTES % (AUTO) 25.3 % (20.0-45.0); MEAN CORPUSCULAR VOLUME 94 FL (80-99); MONOCYTES % (AUTO) 10.5 % (1.0-10.0); NEUTROPHILS % (AUTO) 62.4 % (45.0-75.0); PLATELET COUNT 315 K/UL (150-450); RED BLOOD COUNT 4.71 M/UL (4.20-5.40); RED CELL DISTRIBUTION WIDTH 13.6 % (11.6-14.8); WHITE BLOOD COUNT 10.2 K/UL (4.8-10.8)
--- NOTE | 2020-07-16 14:00 | NUR ---
NURSE NOTES: No BM since Sunday, per patient. Medicated with ordered colace and MOM, encouraged PO fluid intake/dietary intake and ambulation, instructed patient on pain medication causing constipation, verbalized understanding. Patient had BM at this time.
--- NOTE | 2020-07-16 15:00 | NUR ---
NURSE NOTES: At 1235 patient noted with teeth chattering, vitals assessed, stable, notified Dr. Garcia, orders for STAT CBC, patient updated, verbalized understanding. Lab results reported to Dr. Garcia, labs WNL, orders for okay to go home.
[2020-07-16 16:00] VITALS: BP 116/74
--- NOTE | 2020-07-16 16:30 | NUR ---
NURSE NOTES: Patient requesting to shower prior to discharge, orders received from Dr. Corrigan, for okay to shower and apply new dressing to surgical site after shower. Will follow as ordered. Addendum: 07/16/20 at 2049 by Danisha Gallego RN Applied new dressing (border gauze) to surgical site, after shower, instructed patient on dressing changes, proper handwashing, s/s of infection, verbalized understanding.
[2020-07-16] MEDS ORDERED: HYDROCODON-ACE1 EA13 ORAL (16:38)
--- NOTE | 2020-07-16 17:45 | NUR ---
NURSE NOTES: Discharge instructions and prescription x1 reviewed with patient, verbalized understanding. All belongings, discharge instructions, prescription, dressing supplies x5 bordered gauze dressings, raised toilet seat, and home medication (from pharmacy security) given to patient. IV discontinued no active bleeding, ID bracelet removed. Sent down via WC with Glory SANDOVAL, in stable condition. Discharged home at 1745.
--- NOTE | 2020-07-20 12:52 | Discharge Summary ---
Discharge Summary Hospital Course Date of Admission Jul 13, 2020 at 05:09 Date of Discharge Jul 16, 2020 at 17:45 Admitting Diagnosis Herniated nucleus pulposus L5-S1, with worsening radiculopathy Reason for Hospitalization: Elective surgery HPI Yessica Riojas is a 25 year old female who was admitted on Jul 13, 2020 at 05:09 for Herniated Nucleus Pulposus L5-S1, Pain,Radiculopathy. Patient was admitted for elective surgery. Consultations Dr Garcia - IM/pulmo Procedures s/p 07/13/[address] Corrigan 1. Left-sided L5-S1 microdiscectomy. 2. L5-S1 hemilaminotomy, foraminotomy and medial facetectomy. 3. L5-S1 neural foraminotomy through a transpedicular intraforaminal approach. 4. Use of intraoperative microscope. 5. Supervision and interpretation of intraoperative fluoroscopy. 6. Supervision and interpretation of somatosensory-evoked potential and free running EMG monitoring. Hospital Course status post surgery course of recovery uneventful initially IV fluids s/p perioperative antibiotic neurovascular status closely monitored, remained stable incision clean ,dry and intact pain management was addressed pain was controlled Hemodynamic status was closely monitored postoperatively noted borderline hypotension patient was hydrated with IV fluids blood pressure stabilized ambulated with PT fall precautions maintained; safe for ambulation DVT prophylaxis provided use of incentive spirometry was encouraged while in the bed tolerated diet , IV fluids discontinued GI prophylaxis provided antiemetics were on board as needed voided freely bowel regimen instituted patient was stable for discharge discharge instructions provided follow up with surgeon in the office as advised FINAL DIAGNOSES 1. Intractable back pain. 2. Intractable leg pain. 3. Worsening radiculopathy. 4. Weakness. 5. Herniated nucleus pulposus, L5-S1 herniation. 6. Neural foraminal stenosis, L5-S1. 7. s/p Left L5S1 Hemilaminotomy foraminotomy microdiscectomy Discharge Medications Continued Medications: Hydrocodone Bit/Acetaminophen 10-325* (Hydrocodon-Acetaminophn 10-325*) 1 Each Tablet 1 TAB ORAL Q8H for Pain , #90 TAB 0 Refills Discharge Condition Upon Discharge: stable Discharge Vital Signs Last Vital Signs Date Time Temp Pulse Resp B/P (MAP) Pulse Ox O2 Delivery O2 Flow Rate FiO2 07/16/20 16:00 97.7 73 18 116/74 (88) 99 2/19/21 09:00 Room Air 07/14/20 21:00 2.0 Discharge Disposition Patient was discharged home Discharge Instructions Discharge Instructions Special Instructions I have been assigned to dictate discharge summary for this account. I was not involved in the patient's management. Lalita Juarez NP Jul 20, 2020 12:52
== END 2020-07-16 17:45 | disposition home or self-care (01) | DRG 520 ==
LOC: SDSOVERFLO 05:09 → EDBD 07:00 → 4E 11:00
DX: M51.17 Intervertebral disc disorders with radiculopathy, lumbosacral region (principal); K21.9 Gastro-esophageal reflux disease without esophagitis; M48.07 Spinal stenosis, lumbosacral region; V43.62XS Car passenger injured in collision with other type car in traffic accident, sequela
CPT/HCPCS: 36415; 72020; 76000; 81025; 85025; 86850; 86900; 86901; 87081; 94003; 94150; J2180; J2250; J2405; J2710; J2765